=== PATIENT | female | born 1990 | race African-American/Black ===

== ENCOUNTER 2023-04-27 09:32 | Emergency (ER) | payer MEDICAID, OTHER ==
[~2023-04-27] VITALS: Ht 160 cm; Wt 87.0 kg
[2023-04-27 10:26] LABS: BASOPHILS % 0.7 % (0.0-2.0); EOSINOPHILS % 4.4 % (0.0-5.0); HEMATOCRIT. 39.8 % (36.0-48.0); HEMOGLOBIN. 13.3 g/dL (12.0-16.0); LYMPHOCYTES % 40.2 % (20.0-50.0); MEAN CORPUSCULAR HEMOGLOBIN 29.3 pg (28.0-32.0); MEAN CORPUSCULAR VOLUME 87.4 fL (81.0-99.0); MEAN PLATELET VOLUME 9.4 fl (7.4-10.4); MONOCYTES % 7.8 % (2.0-8.0); NEUTROPHILS % 46.9 % (40.0-76.0); PLATELET 256 x1000/uL (130-400); RED BLOOD CELL COUNT 4.55 mill/uL (4.2-5.4); RED CELL DISTRIBUTION WIDTH 16.6 % (11.6-14.6)
[2023-04-27 10:36] LABS: CHLORIDE 108 mEq/L (98-107)
[2023-04-27 10:38] LABS: HCG SCREEN NEGATIVE
[2023-04-27 10:39] LABS: PROTHROMBIN TIME 10.4 sec (9.6-11.0)
[2023-04-27 11:34] VITALS: BP 106/90
== END 2023-04-27 13:09 | disposition home or self-care (01) ==
LOC: ER 09:32
DX: R53.1 Weakness (principal); Z98.890 Other specified postprocedural states
CPT/HCPCS: 36415; 80053; 84703; 85025; 86850; 86900; 99283

== ENCOUNTER 2023-10-05 09:02 | Emergency (ER) | payer OTHER ==
[~2023-10-05] VITALS: Ht 157.5 cm; Wt 87.0 kg
[2023-10-05 09:21] VITALS: TEMP 99.1; O2SAT 98
[2023-10-05 10:43] LABS: BASOPHILS % 0.3 % (0.0-2.0); HEMATOCRIT. 43.1 % (36.0-48.0); HEMOGLOBIN. 14.7 g/dL (12.0-16.0); LYMPHOCYTES % 31.3 % (20.0-50.0); MEAN CORPUSCULAR HGB CONC 34.1 g/dL (31.0-37.0); MEAN CORPUSCULAR VOLUME 87.8 fL (81.0-99.0); MONOCYTES % 7.9 % (2.0-8.0); NEUTROPHILS % 57.5 % (40.0-76.0); PLATELET 250 x1000/uL (130-400); RED CELL DISTRIBUTION WIDTH 16.5 % (11.6-14.6); WHITE BLOOD COUNT 7.7 x1000/uL (4.5-11.0)
[2023-10-05 11:45] LABS: ALANINE AMINOTRANSFERASE 9 IU/L (10-49); ALBUMIN 4.5 g/dL (3.2-4.8); ASPARTATE AMINOTRANSFERASE 14 IU/L (<34); CALCIUM 9.5 mg/dL (8.7-10.4); CARBON DIOXIDE 24 mEq/L (21-32); CHLORIDE 108 mEq/L (98-107); CREATININE 0.6 mg/dL (0.6-1.0); GLUCOSE 94 mg/dL (70-105); POTASSIUM 4.1 mEq/L (3.5-5.1); SODIUM 140 mEq/L (136-145); UREA NITROGEN BLOOD 7 mg/dL (9-23)
[2023-10-05 12:53] VITALS: BP 151/99; PULSE 90; RESP 17
[2023-10-05] MEDS ORDERED: KETOROLAC 60MG/2ML VIAL IM STA (12:53)
[2023-10-05] MEDS ORDERED: IBUP-2029 MT (17:33)
== END 2023-10-05 18:09 | disposition home or self-care (01) ==
LOC: ER 09:23
DX: M54.50 Low back pain, unspecified (principal); M79.652 Pain in left thigh; Z98.890 Other specified postprocedural states
CPT/HCPCS: 80053; 81025; 85025; 36415; 72131; 74177; 96372; 99285; J1885; Z7610